=== PATIENT | female | born 1960 | race Caucasian/White ===

== ENCOUNTER → 2017-11-27 | Outpatient (CLI) | payer BC ==
[~2017-11-27] MED LIST: CYCL10 PO; LORA1 PO; NAPR500 PO; Omeprazole20 M1 PO; PROP80ER PO; VENL37.5ER PO
[2017-11-27 17:21] LABS: BASOPHILS ABSOLUTE AUTO 0.04 K/mm3 (0.00-0.23); BASOPHILS PERCENT AUTO 1 % (0-2); EOSINOPHILS ABSOLUTE AUTO 0.19 K/mm3 (0.00-0.68); EOSINOPHILS PERCENT AUTO 2 % (0-6); Hemoglobin 15.7 g/dL (11.5-16.0); IMMATURE GRAN ABSOLUTE AUTO 0.03 K/mm3 (0.00-0.10); IMMATURE GRAN PERCENT AUTO 0 % (0-1); LYMPHOCYTES PERCENT AUTO 22 % (21-46); MONOCYTES ABSOLUTE AUTO 0.72 K/mm3 (0.16-1.47); MONOCYTES PERCENT AUTO 9 % (4-13); Mean Corpuscular HGB 30.1 pg (26.0-34.0); Mean Corpuscular HGB Conc 33.4 g/dL (31.5-36.5); Mean Corpuscular Volume 90 fL (80-100); Mean Platelet Volume 10.8 fL (9.1-12.4); NEUTROPHILS ABSOLUTE AUTO 5.53 K/mm3 (1.96-9.15); NEUTROPHILS PERCENT AUTO 66 % (41-73); Platelet Count 226 K/mm3 (150-400); RDW Coefficient Variation 13.2 % (11.7-14.2); RDW Standard Deviation 43.8 fL (35.1-46.3); Red Blood Cell Count 5.21 M/mm3 (3.80-5.20); White Blood Cell Count 8.31 K/mm3 (4.00-11.30)
== END ==
LOC: LAB 13:57 → LAB SHORT 13:57
PROVIDERS: Internal Medicine Hematology & Oncology
DX: C50.612 Malignant neoplasm of axillary tail of left female breast (principal)
CPT/HCPCS: 85025

== ENCOUNTER → 2018-11-03 | Outpatient (CLI) | payer BC | LOC: LAB SHORT 10:19 → PLD 10:19 | DX: D48.5 Neoplasm of uncertain behavior of skin (principal) | CPT/HCPCS: 88305 ==

== ENCOUNTER 2023-04-30 07:40 | Day surgery (SDC) | payer OTHER ==
[2023-04-30] MEDS ORDERED: PEPCID20 MG PO (12:07)
[2023-04-30] MEDS ORDERED: ATOR20 PO (12:07)
[2023-04-30] MEDS ORDERED: LOSA25 PO (12:07)
[2023-04-30] MEDS ORDERED: PROC5 PO (12:08)
== END 2023-04-30 22:54 | disposition home or self-care (01) ==
LOC: MOI US 07:40
DX: C50.412 Malignant neoplasm of upper-outer quadrant of left female breast (principal); Z17.0 Estrogen receptor positive status [ER+]; Z01.810 Encounter for preprocedural cardiovascular examination; I10 Essential (primary) hypertension; Z01.812 Encounter for preprocedural laboratory examination
CPT/HCPCS: 19285; 36415; 77065; 80048; 85025; 93005; 93010; A4648

== ENCOUNTER 2023-05-01 08:15 | Day surgery (SDC) | payer OTHER ==
[~2023-05-01] VITALS: Ht 157.5 cm; Wt 75.0 kg
[2023-05-01] VITALS (15 sets, daily range): BP systolic 103–152; BP diastolic 52–89
[~2023-05-01 08:15] MED LIST changes: +ATOR20 PO; +LOSA25 PO; +PEPCID20 MG PO; +PROC5 PO
--- NOTE | 2023-05-01 13:21 | NUR ---
PT TO DAY SURGERY STEP DOWN FROM PACU. PT HAD L PARTIAL MASTECTOMY WITH MYRANDA. PT HAS BREAST BINDER ON. PT HAS CLEAN GUAZE COVERING 2 INCISIONS THAT HAVE STERI STRIPS. THE STERI STRIPS HAVE DRIED BLOOD ON THEM, BUT THE GUAZE IS CLEAN. PT IS AWAKE AND ORIENTED, ABLE TO MOVE SELF IN BED. VSS.
--- NOTE | 2023-05-01 13:45 | NUR ---
PT TOLERATING PO FLUIDS AND CRACKERS. ICE PACK GIVEN. Discharge instructions reviewed with patient. Patient verbalizes understanding. Copy given to patient to take home. Patient States Post-Procedure ride home has been arranged.
--- NOTE | 2023-05-01 13:54 | NUR ---
PT TRYING TO REST, DECLINES PAIN MEDICATION. FEELS DIZZY WHEN SHE SITS UP. SURGERY SITE REMAINS UNCHANGED.
--- NOTE | 2023-05-01 14:25 | NUR ---
PT FEELING BETTER, NOT DIZZY. UP TO AMBULATE TO VOID. TOLERATING AMUBLATION WELL. Discharge instructions reviewed with patient. Patient verbalizes understanding. Copy given to patient to take home. Patient States Post-Procedure ride home has been arranged.
--- NOTE | 2023-05-01 14:55 | NUR ---
Discharged via wheelchair to private car for ride home.
== END 2023-05-01 14:55 | disposition home or self-care (01) ==
LOC: ORSCMMR 08:15 → NM 08:15 → ORSCMMR 08:17 → NM 09:00
PROVIDERS: Surgery
PROC: 0HBU0ZZ Excision of Left Breast, Open Approach (ICD-10-PCS; principal; 2023-05-01 10:00)
PROC: 07B60ZX Excision of Left Axillary Lymphatic, Open Approach, Diagnostic (ICD-10-PCS; principal; 2023-05-01 10:00)
DX: C50.412 Malignant neoplasm of upper-outer quadrant of left female breast (principal); Z17.0 Estrogen receptor positive status [ER+]; I10 Essential (primary) hypertension; J44.9 Chronic obstructive pulmonary disease, unspecified; F17.210 Nicotine dependence, cigarettes, uncomplicated; E78.00 Pure hypercholesterolemia, unspecified; Z79.899 Other long term (current) drug therapy
CPT/HCPCS: 38792; 88307; A9270; A9520; J0690; J1100; J1885; J2250; J2405; J2704; J2765; J3010; J7120; Q9968

== ENCOUNTER → 2024-09-27 | Outpatient (CLI) | payer OTHER | LOC: LAB SHORT 15:10 → LAB 15:10 | DX: R30.0 Dysuria (principal) | CPT/HCPCS: 87086 ==

== ENCOUNTER → 2024-11-16 | Outpatient (CLI) | payer OTHER ==
[2024-11-16 12:10] LABS: BASOPHILS ABSOLUTE AUTO 0.03 K/mm3 (0.00-0.23); BASOPHILS PERCENT AUTO 0 % (0-2); EOSINOPHILS ABSOLUTE AUTO 0.08 K/mm3 (0.00-0.68); EOSINOPHILS PERCENT AUTO 1 % (0-6); Hematocrit 41.1 % (33.0-51.0); Hemoglobin 14.5 g/dL (11.5-16.0); IMMATURE GRAN ABSOLUTE AUTO 0.04 K/mm3 (0.00-0.10); IMMATURE GRAN PERCENT AUTO 0 % (0-1); LYMPHOCYTES ABSOLUTE AUTO 1.29 K/mm3 (0.84-5.20); LYMPHOCYTES PERCENT AUTO 15 % (21-46); MONOCYTES ABSOLUTE AUTO 0.67 K/mm3 (0.16-1.47); MONOCYTES PERCENT AUTO 8 % (4-13); Mean Corpuscular HGB Conc 35.3 g/dL (31.5-36.5); Mean Corpuscular Volume 86 fL (80-100); NEUTROPHILS ABSOLUTE AUTO 6.80 K/mm3 (1.96-9.15); NEUTROPHILS PERCENT AUTO 76 % (41-73); NRBC ABSOLUTE 0.00 K/mm3 (0.00-0.02); NRBC Auto 0.0 /100 WBC (0.0-0.2); Platelet Count 272 K/mm3 (150-400); RDW Coefficient Variation 13.2 % (11.7-14.2); RDW Standard Deviation 41.4 fL (35.1-46.3)
[2024-11-16 12:25] LABS: Alanine Aminotransfer (ALT/SGP 51.0 U/L (12-78); Albumin, Blood 4.1 g/dL (3.4-5.0); Albumin/Globulin Ratio 1.1 (0.8-1.8); Anion Gap 16.0 mmol/L (6-16); Aspartate Aminotrans (AST/SGOT 31.0 U/L (12-37); Bilirubin, Total 0.4 mg/dL (0.1-1.0); Blood Urea Nitrogen 10.0 mg/dL (8-24); CO2, Blood 25.0 mmol/L (21-32); Calcium, Blood 10.7 mg/dL (8.5-10.1); Chloride, Blood 100.0 mmol/L (98-108); Creatinine, Blood 0.88 mg/dL (0.40-1.00); Globulin, Blood 3.8 g/dL (2.2-4.0); Glucose, Blood 120.0 mg/dL (70-99); Potassium, Blood 3.9 mmol/L (3.5-5.5); Sodium, Blood 137.0 mmol/L (136-145); Total Protein, Blood 7.9 g/dL (6.4-8.2)
== END ==
LOC: LAB SHORT 12:05 → LAB 12:05
PROVIDERS: Physician Assistant
DX: R10.9 Unspecified abdominal pain (principal)
CPT/HCPCS: 80053; 83690; 85025

== ENCOUNTER 2024-12-17 08:19 | Inpatient (IN) | payer OTHER ==
[2024-12-17] VITALS (21 sets, daily range): BP systolic 109–150; BP diastolic 64–90
[~2024-12-17] VITALS: Ht 157.5 cm; Wt 71.6 kg
[~2024-12-17 08:19] MED LIST changes: +ANASTROZOLE1 M7 PO; +HYDR1TAB94 PO; +ONDA4 PO; +OXYC5 PO
[2024-12-17] MEDS ORDERED: CeFAZolin Sodium 2,000 MG in NS 100 ML IV SCH (09:00)
[2024-12-17] MEDS ORDERED: Tranexamic Acid 100 ML IV SCH (09:00)
[2024-12-17] MEDS ORDERED: Chlorhexidine Mouth Care 15 ML UDC MT SCH (09:00)
--- NOTE | 2024-12-17 09:34 | NUR ---
History, Chart, Medications and Allergies reviewed before start of procedure. Pre-Op teaching done. Pt verbalizes understanding. Patient confirms NPO status and agrees with scheduled surgery. PT FRIEND, AT BS, TOOK PATIENT'S UPPER DENTURE WITH HER, WELL HER BELONGINGS BAG.
[2024-12-17] MEDS ORDERED: Bupivacaine 0.5% W/EPI 1:200000 SDV 30 ML Vial ONE (10:27)
[2024-12-17] MEDS ORDERED: Rocuronium Bromide 10 MG/ML 5ML Injection IV ONE ×2 (11:01→11:02)
[2024-12-17] MEDS ORDERED: Ondansetron HCl 2 MG / ML 2ML Vial ONE (11:01)
[2024-12-17] MEDS ORDERED: Dexamethasone Sod Phos 10 MG/ML 1ML VIAL ONE (11:01)
[2024-12-17] MEDS ORDERED: FentaNYL Citrate 50 MCG/ML 2 ML Injection ONE ×2 (11:01→13:27)
[2024-12-17] MEDS ORDERED: Sugammadex Sodium 200 MG/2ML SDV (100 MG/ML) ONE (11:02)
[2024-12-17] MEDS ORDERED: ePHEDrine Sulfate 50 MG/ML 1ML Injection IV PRN (11:15)
[2024-12-17] MEDS ORDERED: Ondansetron HCl 2 MG / ML 2ML Vial IV PRN (11:15)
[2024-12-17] MEDS ORDERED: Prochlorperazine Edisylate 10 mg Vial IV PRN (11:15)
[2024-12-17] MEDS ORDERED: HYDROmorphone HCl/Pf 1MG SYR IV PRN ×2 (11:15→13:50)
[2024-12-17] MEDS ORDERED: FentaNYL Citrate 50 MCG/ML 2 ML Injection IV PRN (11:15)
[2024-12-17] MEDS ORDERED: Phenylephrine HCl 100 MCG/ML-NS 10MLSYR (1MG/10ML) ONE (11:24)
[2024-12-17] MEDS ORDERED: Magnesium Hydroxide Conc 10 ML UDC PO PRN (13:00)
[2024-12-17] MEDS ORDERED: HYDROmorphone HCl/Pf 1MG SYR ONE ×2 (13:09→13:42)
--- NOTE | 2024-12-17 14:34 | NUR ---
POST OP S/P LEFT HIP RODDING. X3 BULKY DRESSINGS WITH GAUZE/TAPE ARE CDI. PT WIGGLES TOES UPON COMMAND, CAP REFILL <3 SECONDS, PEDAL PULSES STRONG. PT REPORTS PAIN TO LEFT HIP, MEDICATED IN PACU BEFORE ARRIVAL. TXA GIVEN PER ORDERS. PT OFFERED WATER AND SNACKS. POST OP VSS AND IN PROGRESS. ON 2L O2 VIA NC, PLAN TO WEAN TOLERATED. ORIENTED TO TREATMENT PLAN AND CALL LIGHT WITHIN REACH.
--- NOTE | 2024-12-17 18:38 | NUR ---
SHIFT SUMMARY NO ACUTE CHANGES, PATIENT IS AOX4, VSS. DENIES NEEDS AT THIS TIME. WORKED WITH PT, VOIDING. TTWB ON RLE, WBAT ON LLE. 1 ASSIST GB, FWW. ABLE TO MAKE NEEDS KNOWN. MEDICATED FOR PAIN PER EMAR.
[2024-12-18 02:26] VITALS: BP 151/91
--- NOTE | 2024-12-18 05:59 | NUR ---
BUNDLE TIER AND LABELER SUMMARY PT IS POD 0 FOR L HIP RODDING. 3 INCISION SITES TO L HIP WITH GAUZE AND PAPER TAPE. UPPER DRESSING REENFORCED WITH ADDITIONAL TAPE TAPE HAD COME LOOSE AND SOME DRAINAGE STRUCK THROUGH ONTO BEDDING. SOILED LINENS CHANGED. PT HAS BEEN UP TO BSC SEVERAL TIMES TO VOID TONIGHT, PT IS PAINFUL WITH AMBULATION MOSTLY FROM CHRONIC PAINS TO HER RLE AND SHOULDERS R/T HER CANCER. MEDICATED AT START OF SHIFT WITH 1 TAB OF OXYCODONE WHICH DIDN'T RELIEVE PAIN FOR VERY LONG, PT THEN STATED THAT SHE TAKES 2 TABS AT BASELINE SO GIVEN 2 TABS FOR NEXT DOSE AND PAIN MUCH BETTER AFTER THAT. VSS, WCTM.
[2024-12-18 06:49] VITALS: BP 156/89
[2024-12-18] MEDS ORDERED: Enoxaparin 40 MG/0.4 ML SYR SC SCH (11:00)
[2024-12-18] MEDS ORDERED: ACET500 PO (12:08)
[2024-12-18 12:41] VITALS: BP 124/75
--- NOTE | 2024-12-18 13:09 | NUR ---
PT DC'D @1300 ASSUMED CARE OF PT @0700. AXO4. PAINFUL - MEDS PER EMAR, SOME ACUTE, MOSTLY CHRONIC PER PT. WORKED WITH PHYSICAL THERAPY- HAD TO REEDUCATE PT THAT HER L LEG WAS WBAT AND R LEG WAS TTAT PER DR SAHNI ORDERS- PT THOUGHT SHE WAS NWB TO R LEG. VSS. SURGICAL SITES CDI EXCEPT FOR TOP DRESSING, THIS SITE CLEANED AND REDRESSED. PT OOB TO BEDSIDE COMMODE THIS SHIFT WELL WHEELCHAIR. WAS ON 1.5LNC, TO START SHIFT, TITRATED OFF UPON ASSUMPTION. PT AND DAUGHTER ANXIOYS TO GO HOME. CONTACTED DR SAHNI - ORDERS RECEIVED. DC INSTRUCTIONS PROVIDED TO PT WITH DAUGHTER AT BEDSIDE. IV PULLED OUT. VSS. PT WHEELED OUT TO CAR W/O INCIDENT - BELONGINGS WITH PT.
== END 2024-12-18 13:00 | disposition home or self-care (01) | DRG 481 ==
LOC: SURS 08:19
PROVIDERS: ADMIT Orthopaedic Surgery
PROC: 0QH734Z Insertion of Internal Fixation Device into Left Upper Femur, Percutaneous Approach (ICD-10-PCS; principal; 2024-12-17 11:00)
DX: M84.559A Pathological fracture in neoplastic disease, hip, unspecified, initial encounter for fracture (principal); C79.51 Secondary malignant neoplasm of bone; C50.919 Malignant neoplasm of unspecified site of unspecified female breast; Z90.710 Acquired absence of both cervix and uterus; Z88.5 Allergy status to narcotic agent; Z88.8 Allergy status to other drugs, medicaments and biological substances; M54.9 Dorsalgia, unspecified; G89.29 Other chronic pain; Z79.899 Other long term (current) drug therapy; J44.9 Chronic obstructive pulmonary disease, unspecified; I10 Essential (primary) hypertension; F17.210 Nicotine dependence, cigarettes, uncomplicated; E78.5 Hyperlipidemia, unspecified; Z51.81 Encounter for therapeutic drug level monitoring; M25.552 Pain in left hip; Z79.01 Long term (current) use of anticoagulants; Z01.810 Encounter for preprocedural cardiovascular examination
CPT/HCPCS: 36415; 80048; 85025; 85610; 85730; 93005; 93010; 97110; 97162; 97530; A9270; C1713; C1769; J0690; J1100; J1171; J1650; J2371; J2405; J2704; J3010; J7120

== ENCOUNTER 2024-12-30 22:06 | Observation (INO) | payer OTHER ==
[~2024-12-30] VITALS: Ht 162.6 cm; Wt 83.9 kg
[~2024-12-30 22:06] MED LIST changes: +ACET500 PO
[2024-12-30 23:42] LABS: BASOPHILS ABSOLUTE AUTO 0.02 K/mm3 (0.00-0.23); BASOPHILS PERCENT AUTO 0 % (0-2); EOSINOPHILS ABSOLUTE AUTO 0.09 K/mm3 (0.00-0.68); EOSINOPHILS PERCENT AUTO 1 % (0-6); Hematocrit 28.6 % (33.0-51.0); Hemoglobin 9.6 g/dL (11.5-16.0); IMMATURE GRAN ABSOLUTE AUTO 0.08 K/mm3 (0.00-0.10); IMMATURE GRAN PERCENT AUTO 1 % (0-1); LYMPHOCYTES ABSOLUTE AUTO 0.34 K/mm3 (0.84-5.20); LYMPHOCYTES PERCENT AUTO 4 % (21-46); MONOCYTES ABSOLUTE AUTO 0.86 K/mm3 (0.16-1.47); MONOCYTES PERCENT AUTO 10 % (4-13); Mean Corpuscular HGB Conc 33.6 g/dL (31.5-36.5); Mean Corpuscular Volume 92 fL (80-100); NEUTROPHILS ABSOLUTE AUTO 7.57 K/mm3 (1.96-9.15); NEUTROPHILS PERCENT AUTO 85 % (41-73); NRBC ABSOLUTE 0.00 K/mm3 (0.00-0.02); NRBC Auto 0.0 /100 WBC (0.0-0.2); Platelet Count 254 K/mm3 (150-400); RDW Coefficient Variation 15.1 % (11.7-14.2); RDW Standard Deviation 49.2 fL (35.1-46.3)
[2024-12-30 23:55] LABS: Alanine Aminotransfer (ALT/SGP 20.0 U/L (12-78); Albumin, Blood 2.1 g/dL (3.4-5.0); Albumin/Globulin Ratio 0.7 (0.8-1.8); Anion Gap 11.0 mmol/L (3-11); Aspartate Aminotrans (AST/SGOT 41.0 U/L (12-37); Bilirubin, Total 0.5 mg/dL (0.1-1.0); Blood Urea Nitrogen 70.0 mg/dL (8-24); CO2, Blood 23.0 mmol/L (21-32); Calcium, Blood 10.5 mg/dL (8.5-10.1); Chloride, Blood 104.0 mmol/L (98-108); Creatinine, Blood 2.32 mg/dL (0.40-1.00); Globulin, Blood 3.2 g/dL (2.2-4.0); Glucose, Blood 99.0 mg/dL (70-99); Magnesium, Blood 3.4 mg/dL (1.6-2.4); Potassium, Blood 3.7 mmol/L (3.5-5.5); Sodium, Blood 134.0 mmol/L (136-145); Total Protein, Blood 5.3 g/dL (6.4-8.2)
[2024-12-31] MEDS ORDERED: Heparin Sodium,Porcine 5,000 UNIT/0.5 ML SDV SC SCH (09:00)
[2024-12-31] MEDS ORDERED: FentaNYL Citrate 50 MCG/ML 2 ML Injection IV PRN (10:15)
[2024-12-31 12:51] LABS: Source, Urine Clean Catch
[2024-12-31 12:54] LABS: Bilirubin, Urine Neg (Neg); Color, Urine Yellow (P-Yellow); Glucose Qualitative, Urine Neg (Neg); Ketones, Urine Neg (Neg); Leukocyte Esterase, Urine 2+ (Neg); Protein, Urine 2+ (Neg); Specific Gravity, Urine 1.020 (1.003-1.022); Urobilinogen, Urine NORM (Normal)
[2024-12-31 12:55] LABS: Hematocrit 29.4 % (33.0-51.0); Hemoglobin 9.9 g/dL (11.5-16.0); Mean Corpuscular HGB Conc 33.7 g/dL (31.5-36.5); Mean Corpuscular Volume 89 fL (80-100); NRBC ABSOLUTE 0.00 K/mm3 (0.00-0.02); NRBC Auto 0.0 /100 WBC (0.0-0.2); Platelet Count 260 K/mm3 (150-400); RDW Coefficient Variation 15.0 % (11.7-14.2); RDW Standard Deviation 47.8 fL (35.1-46.3)
[2024-12-31 13:04] LABS: Anion Gap 9.0 mmol/L (3-11); Blood Urea Nitrogen 55.0 mg/dL (8-24); CO2, Blood 26.0 mmol/L (21-32); Calcium, Blood 11.3 mg/dL (8.5-10.1); Chloride, Blood 105.0 mmol/L (98-108); Creatinine, Blood 1.21 mg/dL (0.40-1.00); Glucose, Blood 99.0 mg/dL (70-99); Potassium, Blood 3.7 mmol/L (3.5-5.5); Sodium, Blood 136.0 mmol/L (136-145)
[2024-12-31 13:14] LABS: Red Blood Cells, Urine 0-2 /hpf (0-2)
[2024-12-31 13:33] LABS: BAND PERCENT MAN 2 % (0-8); BASOPHILS ABSOLUTE MAN 0.00 K/mm3 (0.00-0.23); BASOPHILS PERCENT MAN 0 % (0-2); EOSINOPHILS ABSOLUTE MAN 0.00 K/mm3 (0.00-0.68); EOSINOPHILS PERCENT MAN 0 % (0-6); LYMPHOCYTES ABSOLUTE MAN 0.08 K/mm3 (0.84-5.20); LYMPHOCYTES PERCENT MAN 1 % (21-46); MONOCYTES ABSOLUTE MAN 0.76 K/mm3 (0.16-1.47); MONOCYTES PERCENT MAN 9 % (4-13); MYELOCYTE ABSOLUTE MAN 0.08 K/mm3 (0.00-0.00); MYELOCYTE PERCENT MAN 1 % (0-0); NEUTROPHILS ABSOLUTE MAN 7.58 K/mm3 (1.96-9.15); SEG NEUTROPHILS PERCENT MAN 87 % (41-73)
[2024-12-31 14:08] VITALS: BP 130/77
--- NOTE | 2024-12-31 14:15 | NUR ---
PT TO ROOM 334 FROM ER. SON AT BEDSIDE.
--- NOTE | 2024-12-31 16:49 | NUR ---
ROUNDED ON PT IN ER WITH ST. PATIENT HAD PAIN MEDICAION EARLIER AND WAS STRUGGLING TO PARTICIPATE IN CONVERSATION, SHE COULD NOT STAY AWAKE FOR MEANINGFUL CONVERSATION
--- NOTE | 2024-12-31 16:59 | NUR ---
SPOKE WITH PT'S DAUGHTER JAZMYN. PT HAS BEEN SEDATED FOR COMFORT SINCE ADMISSION. 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 ANDRES WAS PLACED TO STABILIZE. SHE HAS BEEN RECEIVING RADIATION TREATMENTS TO HER BACK. LAST KNOWN RADIATION TX WAS 12/27. PT WAS UNABLE TO GET OUT OF BED BY , 12/29. JAZMYN CALLED PHYSICIAN WHO RECOMMENDED SENDING PT TO THE ED FOR EVALUATION. PT REMAINS A FULL CODE, WILL DISCUSS MORE IN DEPTH TOMORROW. DAUGHTER IS TEARFUL THIS EVENING. PLAN TO FOLLOW UP WITH FAMILY TOMORROW.
--- NOTE | 2024-12-31 17:16 | NUR ---
MET WITH PATIENT AT BEDSIDE, SHE IS MORE AWAKE THAN PREVIOUS ATTEMPTED VISIT. SHE IS ALERT, ORIENTED. SHE STATES SHE DOESN'T WANT TO REMAIN A FULL CODE, STATES SHE DOESN'T WANT TO , BUT DOES NOT WANT TO BE RESCUSITATED IF SHE DOES. NO CPR, NO INTUBATION. DR. COWART NOTIFIED, CODE STATUS CHANGED.
[2024-12-31] MEDS ORDERED: VOLTAREN ARTHRI20 GM (17:30)
[2024-12-31] MEDS ORDERED: DICL75ER PO (17:33)
[2024-12-31] MEDS ORDERED: GABA300 PO (17:34)
[2024-12-31 19:37] VITALS: BP 142/75
[2024-12-31] MEDS ORDERED: Ondansetron 8 MG SoluTab MM PRN (19:40)
--- NOTE | 2024-12-31 19:44 | NUR ---
SHIFT SUMMARY PT IS A/OX3-4, CONFUSION AND SLOW TO RESPOND AT TIMES, DROWSY. PT HAS X3 STAPLED INCISION SITES X3 TO THE L HIP AND THIGH. PT AND SON UNABLE TO RECALL THE PROCEDURE THAT WAS DONE, HOWEVER REPORTS IT WAS COMPLETED ABOUT 2 WEEKS AGO. STAGE 2 PRESSURE ULCER TO THE COCCYX, DR COWART NOTIFIED. PICTURES TAKEN AND PLACED IN CHART. PT MEDICATED WITH OXYCODONE PER JUN.
[2024-12-31] MEDS ORDERED: Lidocaine 4% 1 Patch TOP SCH (22:45)
[2025-01-01 03:20] VITALS: BP 156/76
--- NOTE | 2025-01-01 06:44 | NUR ---
Shift Summary Assumed care near the end of the shift d/t staffing reassigments. Pt had two loose watery incontinent bowel movements. Per report she is painful, PRN oxycodone seems to bring her to 5/10 pain. Pt currently sleeping comfortably. Purewick in place for incontinent voids. Son at the bedside.
[2025-01-01 07:11] VITALS: BP 118/67
[2025-01-01 10:16] LABS: BASOPHILS ABSOLUTE AUTO 0.03 K/mm3 (0.00-0.23); BASOPHILS PERCENT AUTO 1 % (0-2); EOSINOPHILS ABSOLUTE AUTO 0.02 K/mm3 (0.00-0.68); EOSINOPHILS PERCENT AUTO 0 % (0-6); Hematocrit 36.0 % (33.0-51.0); Hemoglobin 12.0 g/dL (11.5-16.0); IMMATURE GRAN ABSOLUTE AUTO 0.21 K/mm3 (0.00-0.10); IMMATURE GRAN PERCENT AUTO 4 % (0-1); LYMPHOCYTES ABSOLUTE AUTO 0.32 K/mm3 (0.84-5.20); LYMPHOCYTES PERCENT AUTO 7 % (21-46); MONOCYTES ABSOLUTE AUTO 0.77 K/mm3 (0.16-1.47); MONOCYTES PERCENT AUTO 16 % (4-13); Mean Corpuscular HGB Conc 33.3 g/dL (31.5-36.5); Mean Corpuscular Volume 91 fL (80-100); NEUTROPHILS ABSOLUTE AUTO 3.46 K/mm3 (1.96-9.15); NEUTROPHILS PERCENT AUTO 72 % (41-73); NRBC ABSOLUTE 0.00 K/mm3 (0.00-0.02); NRBC Auto 0.0 /100 WBC (0.0-0.2); Platelet Count 291 K/mm3 (150-400); RDW Coefficient Variation 15.0 % (11.7-14.2); RDW Standard Deviation 48.8 fL (35.1-46.3)
[2025-01-01 10:43] LABS: Anion Gap 6.0 mmol/L (3-11); Blood Urea Nitrogen 33.0 mg/dL (8-24); CO2, Blood 30.0 mmol/L (21-32); Calcium, Blood 12.1 mg/dL (8.5-10.1); Chloride, Blood 105.0 mmol/L (98-108); Creatinine, Blood 0.64 mg/dL (0.40-1.00); Glucose, Blood 91.0 mg/dL (70-99); Potassium, Blood 3.8 mmol/L (3.5-5.5); Sodium, Blood 137.0 mmol/L (136-145)
--- NOTE | 2025-01-01 15:42 | NUR ---
CALLED DR HOBBS REGARDING PERSISTENT NAUSEA AFTER ZOFRAN ADMIN. ORDERED ADDITIONAL MED, GIVEN WITH GOOD RELIEF.
[2025-01-01 16:36] VITALS: BP 130/65
--- NOTE | 2025-01-01 18:03 | NUR ---
SHIFT SUMMARY PATIET REPORTING THAT SHE WANTS TO GO HOME REPEATEDLY. SON AND DAUGHTER INTERMITTENTLY IN ROOM. PATIENT REPORTING NAUSEA AND PAIN THROUGHOUT SHIFT. PHENERGAN GIVEN IN ADDITION TO ZOFRAN. PATIENT NOT EATING MEALS, DECLINING. ENCOURAGED TO INCREASE INTAKE IN ORDER TO GO HOME, DISCHARGE PUT OFF UNTIL TOMORROW. DOC MADE AWARE. DAUGHTER IN ROOM, OKAY WITH TRANSPORTING TOMORROW.
[2025-01-01 19:38] VITALS: BP 174/95
[2025-01-01 19:50] VITALS: BP 159/78
[2025-01-02 04:09] VITALS: BP 150/76
--- NOTE | 2025-01-02 04:10 | NUR ---
PATIENT SON WAS PRESENT ALL NIGHT FOR HER COMFORT. PUREWICK PLACED ON PATIENT WITH ATTENDS. PAIN MEDICATION CHANGED TO SCHEDULED Q4 PER DAUGHTER THIS IS HER REGULAR SCHEDULE AT HOME. PATIENT TOLERATED MEDICATION. NO ACUTE CHANGES OVERNIGHT, VITALS WERE STABLE. PATIENT COMFORTABLE, BED IN LOWEST POSITION, CALL REYNOLDS AND PERSONAL BELONGINGS WITHIN REACH.
[2025-01-02 05:55] LABS: BASOPHILS ABSOLUTE AUTO 0.02 K/mm3 (0.00-0.23); BASOPHILS PERCENT AUTO 0 % (0-2); EOSINOPHILS ABSOLUTE AUTO 0.05 K/mm3 (0.00-0.68); EOSINOPHILS PERCENT AUTO 1 % (0-6); Hematocrit 29.0 % (33.0-51.0); Hemoglobin 9.7 g/dL (11.5-16.0); IMMATURE GRAN ABSOLUTE AUTO 0.25 K/mm3 (0.00-0.10); IMMATURE GRAN PERCENT AUTO 5 % (0-1); LYMPHOCYTES ABSOLUTE AUTO 0.32 K/mm3 (0.84-5.20); LYMPHOCYTES PERCENT AUTO 7 % (21-46); MONOCYTES ABSOLUTE AUTO 0.83 K/mm3 (0.16-1.47); MONOCYTES PERCENT AUTO 17 % (4-13); Mean Corpuscular HGB Conc 33.4 g/dL (31.5-36.5); Mean Corpuscular Volume 92 fL (80-100); NEUTROPHILS ABSOLUTE AUTO 3.44 K/mm3 (1.96-9.15); NEUTROPHILS PERCENT AUTO 70 % (41-73); NRBC ABSOLUTE 0.00 K/mm3 (0.00-0.02); NRBC Auto 0.0 /100 WBC (0.0-0.2); Platelet Count 259 K/mm3 (150-400); RDW Coefficient Variation 14.8 % (11.7-14.2); RDW Standard Deviation 49.1 fL (35.1-46.3)
[2025-01-02 06:36] LABS: Alanine Aminotransfer (ALT/SGP 22.0 U/L (12-78); Albumin, Blood 2.1 g/dL (3.4-5.0); Albumin/Globulin Ratio 0.7 (0.8-1.8); Anion Gap 7.0 mmol/L (3-11); Aspartate Aminotrans (AST/SGOT 47.0 U/L (12-37); Bilirubin, Total 0.5 mg/dL (0.1-1.0); Blood Urea Nitrogen 21.0 mg/dL (8-24); CO2, Blood 28.0 mmol/L (21-32); Calcium, Blood 10.6 mg/dL (8.5-10.1); Chloride, Blood 108.0 mmol/L (98-108); Creatinine, Blood 0.56 mg/dL (0.40-1.00); Globulin, Blood 3.2 g/dL (2.2-4.0); Glucose, Blood 90.0 mg/dL (70-99); Potassium, Blood 3.7 mmol/L (3.5-5.5); Sodium, Blood 139.0 mmol/L (136-145); Total Protein, Blood 5.3 g/dL (6.4-8.2)
[2025-01-02 07:37] VITALS: BP 153/80
--- NOTE | 2025-01-02 10:37 | NUR ---
note WOUND PICTURES TAKEN FOR POSSIBLE DISCHARGE. MEPELEX CHANGED ON COCCYX AND 1 APPLIED TO LEFT PROXIMAL STAPLE LINE. NO DRAIANGE FROM ARA NOTED. CARE ONGOING.
[2025-01-02 14:40] VITALS: BP 126/67
--- NOTE | 2025-01-02 17:41 | NUR ---
NOTE PT ALERT. NO CAHNGE IN MENTITION. STIL SEEING DOG OR RATS IN THE ROOM. BROUGHT HER LUNCH FROM [facility] Convers[facility]. VSS. UP IN CHAIR WITH FAMILY PRESENT. BM X1, LARGE FORMED. CARE ONGOING.
--- NOTE | 2025-01-02 17:49 | NUR ---
NOTE PT RESTING QUIETLY. SCHEDULED PAIN MEDCIATION EFFECTIVE. PT HAS ATE/DRANK VERY LITTLE. FAMILY AT BEDSIDE. PICTURES TAKEN OF INCISION AND BUTTOCKS. LEFT HIP/THIGH STAPLE INTACT WITH EDGES APPROXIMATED. NO DRAINAGE. VSS. PUREWICK WITH DARK, CLOUDY URINE. PT DOES SAY "OW" WHEN SHE PEES. RANDAL AREA SKIN INTACT WITHOUT RASH OR ODOR NOTED. REPOSTIONED FOR SKIN PROTECTION. BED LOW AND LOCKED. CALL LIGHT WITH IN REACH. CARE ONGOING.
[2025-01-02 19:12] VITALS: BP 142/78
[2025-01-02] MEDS ORDERED: NS 1,000 ML IV SCH (21:45)
--- NOTE | 2025-01-03 04:34 | NUR ---
PT RESTED COMFORTABLY WITH HER PAIN MEDICATION ON A SCHEDULE. VITALS HAVE BEEN STABLE. PATIENT HAS BEEN TURNED. HER SON ACCOMPANIED HER THROUGH THE NIGHT. NO ACUTE CHANGES. I SPOKE WITH THE DAUGHTER THIS MORNING WHEN I CAME ON SHIFT AND SHE AGREED TO A PALLIATIVE CONSULT TO SEE WHAT THEY COULD OFFER.
[2025-01-03 04:54] VITALS: BP 133/67
[2025-01-03 06:19] LABS: Hematocrit 29.4 % (33.0-51.0); Hemoglobin 9.5 g/dL (11.5-16.0); Mean Corpuscular HGB Conc 32.3 g/dL (31.5-36.5); Mean Corpuscular Volume 93 fL (80-100); NRBC ABSOLUTE 0.00 K/mm3 (0.00-0.02); NRBC Auto 0.0 /100 WBC (0.0-0.2); Platelet Count 254 K/mm3 (150-400); RDW Coefficient Variation 14.9 % (11.7-14.2); RDW Standard Deviation 50.0 fL (35.1-46.3)
[2025-01-03 06:40] LABS: Anion Gap 5.0 mmol/L (3-11); Blood Urea Nitrogen 19.0 mg/dL (8-24); CO2, Blood 30.0 mmol/L (21-32); Calcium, Blood 9.5 mg/dL (8.5-10.1); Chloride, Blood 109.0 mmol/L (98-108); Creatinine, Blood 0.53 mg/dL (0.40-1.00); Glucose, Blood 91.0 mg/dL (70-99); Potassium, Blood 3.7 mmol/L (3.5-5.5); Sodium, Blood 140.0 mmol/L (136-145)
[2025-01-03 07:09] LABS: BAND PERCENT MAN 2 % (0-8); BASOPHILS ABSOLUTE MAN 0.00 K/mm3 (0.00-0.23); BASOPHILS PERCENT MAN 0 % (0-2); EOSINOPHILS ABSOLUTE MAN 0.06 K/mm3 (0.00-0.68); EOSINOPHILS PERCENT MAN 1 % (0-6); LYMPHOCYTES ABSOLUTE MAN 0.37 K/mm3 (0.84-5.20); LYMPHOCYTES PERCENT MAN 6 % (21-46); METAMYELOCYTE ABSOLUTE MAN 0.18 K/mm3 (0.00-0.00); METAMYELOCYTE PERCENT MAN 3 % (0-0); MONOCYTES ABSOLUTE MAN 1.00 K/mm3 (0.16-1.47); MONOCYTES PERCENT MAN 16 % (4-13); MYELOCYTE ABSOLUTE MAN 0.12 K/mm3 (0.00-0.00); MYELOCYTE PERCENT MAN 2 % (0-0); NEUTROPHILS ABSOLUTE MAN 4.51 K/mm3 (1.96-9.15); SEG NEUTROPHILS PERCENT MAN 70 % (41-73)
[2025-01-03 07:36] VITALS: BP 145/78
--- NOTE | 2025-01-03 07:52 | NUR ---
ASSUMPTION OF CARE: THIS RN ASSUMED CARE OF PATIENT, OVERSEEING ORIENTING RN, TWAN. AWAKE DURING SHIFT CHANGE REPORT. LYING IN BED c AUDIO BOOK PLAYING. SON, SLIME, AT BEDSIDE. NS @ 100mL/hr. C/O PAIN FOR WHICH SHE WAS PROVIDED c 25MCG FENTANYL FOR BTP. BREATHING EVEN AND UNLABORED c ROOM AIR. DRAINING YELLOW, PURULENT URINE VIA PUREWICK. BED IN LOWEST POSITION. CALL LIGHT WITHIN REACH. ACUTE NEEDS MET.
--- NOTE | 2025-01-03 12:40 | NUR ---
DR BROWN TO BEDSIDE FOR ROUNDING. PATIENT ADAMATE SHE WANTS TO GO HOME TODAY. DR BROWN ASKED WHAT PATIENT'S FEELINGS ARE ON HOSPICE AND PATIENT STATES SHE IS WILLING TO GO HOME ON HOSPICE TODAY. CALL TO PALLIATIVE CARE TO UPDATE. VERBAL ORDERS RECEIVED TO CHANGE PAIN MEDICATION REGIMEN: ADD: FENTANYL PATCH 50MCG TOPICALLY Q72H - FIRST DOSE NOW. ACETAMINOPHEN 650MG PO Q4H PRN GABAPENTIN 300MG PO TID - FIRST DOSE NOW. CHANGE: OXYCODONE TO 5-10MG PO Q4H PRN. DR. BROWN WILL PLACE ORDERS FOR HOSPICE REFERRAL AND DISCHARGE. PT HAS NO PREFERENCE AND AGREES TO "NEXT AVAILABLE" AGENCY.
--- NOTE | 2025-01-03 13:16 | NUR ---
MET WITH PATIENT TO DISCUSS SYMPTOM MANAGMENT. SHE IS LAYING IN BED EYEBROWS FURROWED. PATIENT EXPRESSED THAT SHE IS STILL PAINFUL. SHE WAS HAVING DIFFICULTY STAYING ALERT ENOUGHT TO MAINTAIN A CONVERSATION. SHE REPORTED THAT SHE WAS HAVING PAIN IN HER BACK. PATIENTS FRIDA ELDRIDGE CAME TO THE OFFICE. DISCUSSED SYMPTOM MANAGMENT. SHE RELAYED [facility] HOME PAIN REGIMINE. SHE EXPRESSED THAT [facility] PAIN HAS BEEN WORSE IN THE LAST FEW DAYS. REVIEWED OPTIONS WITH PC MOE CARMONA AND PATIENTS DAUGHTER. BSRN OBTAINED VERBAL ORDERS. PROVIDER DISCUSSED HOSPICE WITH PATIENT AND SHE WOULD LIKE TO GO CC AND HOME ON HOSPICE. DISCUSSED WITH BRISTOL LIAISON. NO OPENINGS UNTIL TOMORROW. CALLED PATIENTS FRIDA ELDRIDGE AND UPDATED HER. SHE WOULD NOT BE ABLE TO HAVE HER COME HOME UNTIL EQUIPMENT ARRIVES. UPDATED CARE COORDINATIOR
[2025-01-03] MEDS ORDERED: FENTANYL1 EAC9 TOP (14:26)
[2025-01-03] MEDS ORDERED: Atropine Sulfate 1% Opth Soln 2ML BTL SL PRN (14:50)
[2025-01-03] MEDS ORDERED: Morphine Sulfate 20 MG/1ML 1 ML Oral Syringe SL PRN (14:50)
[2025-01-03 14:58] VITALS: BP 158/92
--- NOTE | 2025-01-03 18:27 | NUR ---
END OF SHIFT SUMMARY: A&Ox4. PLEASANT AND COOPERATIVE WITH CARE. CALLS APPROPRIATELY AND IS ABLE TO ADVOCATE NEEDS EFFECTIVELY. VSS. BREATHING EVEN AND UNLABORED c RA LPM/NC. CONTINENT OF BOWEL AND BLADDER; THOUGH BEDRIDDEN SECONDARY TO PAIN AND IMPAIRED MOBILITY/WBS. PUREWICK IN PLACE. PURULENT URINE NOTED IN CANISTER THIS MORNING AND HAS IMPROVED IN CLARITY AND COLOR DAY PROGRESSED. CONTINUES TO REFUSE MEALS DUE TO LACK OF APPETITE. MEDS WHOLE c FLUIDS. SIGNIFICANT PAIN TODAY, NOT RELIEVED c ROUTINE OXYCODONE, BUT BETTER c FENTANYL 25mcg Q2h PRN. STATES SHE JUST WANTS TO GET OUT OF PAIN AND GO HOME. AMMENDABLE TO GOING HOME ON HOSPICE TOMORROW THAT IS THE NEXT AVAILABLE ADMIT DATE. COMFORT ORDERS PLACED AND PAIN MEDS CHANGED. GOAL FOR TODAY HAS BEEN TO GET PAIN MANAGED, BUT CONTINUES TO STAY AT 9/10; GOAL OF 3/10. BED IN LOWEST POSITION, CALL LIGHT WITHIN REACH, ALL NEEDS MET. REPORT TO ONCOMING NURSE.
--- NOTE | 2025-01-04 04:54 | NUR ---
COMFORT CARE SHIFT SUMMARY PATIENT IS ALERT AND ORIENTED. PATIENT HAS HAD NO ACUTE EVENTS THIS SHIFT. PUREWICK IN PLACE. PATIENT HAS HAD PAIN THIS SHIFT AND MEDICATED PER EMAR. PATIENT HAS HAD NO COMPLAINTS OF SOB, NAUSEA, OR VOMITTING THIS SHIFT. SON HAS BEEN WITH PATIENT ALL SHIFT. PATIENT PLANNING ON DCING TO HOSPICE TODAY. BED IN LOCKED AND LOWEST POSITION. CALL LIGHT IN PLACE.
--- NOTE | 2025-01-04 15:21 | NUR ---
DISCHARGE TO HOSPICE 1510 PT LEFT ON GURNEY TRANSPORT WITH [facility]. LEFT WITH ALL BELONGINGS.
== END 2025-01-04 15:09 | disposition hospice, home (50) ==
LOC: ER 22:06 → ERHOLD 22:07 → MEDS 12-31 13:55
PROVIDERS: Internal Medicine; Student in an Organized Health Care Education/Training Program; ADMIT Internal Medicine
DX: N17.9 Acute kidney failure, unspecified (principal); R13.10 Dysphagia, unspecified; D64.9 Anemia, unspecified; E83.52 Hypercalcemia; R11.2 Nausea with vomiting, unspecified; C50.919 Malignant neoplasm of unspecified site of unspecified female breast; C79.51 Secondary malignant neoplasm of bone; R53.1 Weakness; F17.200 Nicotine dependence, unspecified, uncomplicated; Z66 Do not resuscitate; Z88.0 Allergy status to penicillin; Z88.5 Allergy status to narcotic agent; Z79.811 Long term (current) use of aromatase inhibitors; Z79.899 Other long term (current) drug therapy
CPT/HCPCS: 36415; 80048; 80053; 81001; 82330; 83735; 83970; 85007; 85025; 85027; 87086; 92610; 93005; 93010; 96360; 96361; 96372; 96374; 96376; 97161; 97530; 99285-25; A6590; A9270; G0378; J1644; J3010; J7030; J7120